=== PATIENT | female | born 1965 | race African-American/Black ===

== ENCOUNTER → 2022-12-22 | Day surgery (SDC) | payer OTHER | END | disposition home or self-care (01) | LOC: FMAMMOTONE 12:34 | PROVIDERS: ATTEND Family Medicine | PROC: 0HBU3ZX Excision of Left Breast, Percutaneous Approach, Diagnostic (ICD-10-PCS; principal; 2022-12-22) | DX: N64.1 Fat necrosis of breast (principal); N64.89 Other specified disorders of breast; R92.0 Mammographic microcalcification found on diagnostic imaging of breast | CPT/HCPCS: 19081; 76098-TC-FY; 87899; 88305-TC; 88342-TC; A4648 ==

== ENCOUNTER 2023-09-21 14:14 | Emergency (ER) | payer OTHER ==
[2023-09-21 14:28] VITALS: BP 108/73; PULSE 59; RESP 16; TEMP 98.5; BMI 42.5
[2023-09-21] MEDS ORDERED: ACETAMINOPHEN 325 MG TABLET (FP) ONE (15:06)
[2023-09-21] MEDS: ACETAMINOPHEN 500 MG TABLET (FP) PO ONE (15:09)
== END 2023-09-21 16:29 | disposition home or self-care (01) ==
LOC: JER 14:14 → JERFT 14:14
DX: M25.561 Pain in right knee (principal); W01.0XXA Fall on same level from slipping, tripping and stumbling without subsequent striking against object, initial encounter
CPT/HCPCS: 73562-TC-RT-FY; 99283-25